=== PATIENT | female | born 1960 | race Caucasian/White ===

== ENCOUNTER 2024-07-27 12:15 | Outpatient (OUT) | payer MEDICARE, OTHER, SELFPAY ==
--- NOTE | 2024-07-27 12:33 | CT_ITS ---
[address] [address] Patient Name: RIRI VYAS MRN: [id number] date: 1960 Sex: F Assigned Patient Location: CT Current Patient Location: Accession/Order Number: [id number] Exam Date: 07/27/2024 12:29 Report Date: 07/28/2024 05:59 At the request of: RENEE WEATHERS Procedure: CT lung screening low-dose EXAMINATION: CT lung screening low-dose HISTORY: Personal History Nicotine Dependence COMPARISON: No relevant comparison available. TECHNIQUE: Axial, Coronal, and Sagittal images were created without the administration of IV contrast material. Dose reduction techniques were achieved by using automated exposure control and/or adjustment of mA and/or kV according to patient size and/or use of iterative reconstruction technique. FINDINGS: LUNGS: Mild emphysematous changes. Scattered areas of mild scarring versus discoid atelectasis. No suspicious nodules. PLEURA: No mass, effusion, or pneumothorax. VASCULATURE: No abnormality. TK: No mass or pathologic adenopathy. MEDIASTINUM: No mass or pathologic adenopathy. CARDIAC: No enlargement, pericardial thickening, or pericardial effusion. Coronary Artery calcifications: AORTA: No aneurysm or dissection. CHEST WALL: No mass or axillary adenopathy BONES: No bone lesion or fracture. LIMITED ABDOMEN: No suspicious findings. Limited images of the upper abdomen. OTHER: Negative. CT/CT lung screening low-dose IMPRESSION: 1. Lung-RADS Category 1 Negative. No nodules and definitely benign nodules. Continue annual screening with LDCT in 12 months. Electronically authenticated by: CHERIE OJEDA Date: 07/28/2024 05:59
== END 2024-07-27 12:16 | disposition home or self-care (01) ==
PROVIDERS: PCP Nurse Practitioner Family; Visit Provider Nurse Practitioner Family
DX: Z12.2 Encounter for screening for malignant neoplasm of respiratory organs (principal); Z87.891 Personal history of nicotine dependence
CPT/HCPCS: 71271